=== PATIENT | female | born 2000 | race Caucasian/White ===

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

== ENCOUNTER 2021-02-20 14:40 | Observation (INO) ==
[2021-02-20] MEDS ORDERED: LIDOCAINE 5% 1 PATCH TD STA (16:04)
[2021-02-20] MEDS ORDERED: CYCLOBENZAPRINE HCL 10 MG TAB PO STA (16:04)
[2021-02-20] MEDS ORDERED: dexAMETHasone**PF** 10 MG/ML VIAL IM ONE (16:04)
[2021-02-20] MEDS ORDERED: ACETAMINOPHEN 500 MG TAB PO STA (16:04)
--- NOTE | 2021-02-20 16:09 | Emergency Department Note ---
Impression & Plan Acute low back pain, Strain of lumbar region ED Provider Note CHIEF COMPLAINT: Low back pain HISTORY OF PRESENT ILLNESS: This 20-year-old female patient with significant past medical history of herniated disc in the lumbar region presents to the emergency department via ambulance complaining of pain in the low back which began 1 to 2 hours prior to arrival. The patient states she was working when she bent over to pick something up at the store and her back seized up, causing her to have to lower herself to the ground. The pain was sudden in onset, is now constant and worse with movement. The patient notes the pain as aching and spasming and a 8/10. The patient has taken no medication for relief of the pain. The patient denies any loss of control of their bowel or bladder func tions. There has been no leg numbness or weakness, and no change in sensation. No nausea or vomiting or abdominal pain. No chest pain or shortness of breath. No dysuria or increased urinary frequency. No saddle anesthesia. The patient is able to move her legs without difficulty and was able to bear weight to stand and pivot from the wheelchair to the bed, but is having difficulty weightbearing to ambulate. REVIEW OF SYSTEMS: A 10 system review of systems was performed with positives and pertinent negatives listed in the history of present illness. All other systems were reviewed and are negative. ALLERGIES: None PHYSICAL EXAM: VITALS: Vitals are noted on the nurse's note and reviewed by myself. Vital signs stable. GENERAL: This is a 20-year-old white female, in no acute distress, nondiaphoretic, well-developed well-nourished. SKIN: The skin was without rashes, erythema, edema, or bruising. Capillary refill less than 2 seconds. NECK: Supple without nuchal rigidity. No cervical spine tenderness. No paraspinous muscle tenderness. HEART: Regular rate and rhythm without murmurs gallops or rubs. LUNGS: Clear to auscultation bilaterally without wheezes, rales or rhonchi. ABDOMEN: Positive bowel sounds x 4. Normal tympanic percussion. Soft, nontender, without masses or organomegaly. MUSCULOSKELETAL: No muscle atrophy, erythema, or edema noted of the back. There is no tenderness over the lumbar spinous processes. There is tenderness over the paraspinous muscles on the right. There is no tenderness over the thoracic spine or paraspinous muscles. There are muscle spasms present. The patient is slow to move around with maximum tenderness with sitting from a lying position. Positive bilateral straight leg raise test. NEURO: Patient was alert and oriented to person place and time. Normal sensation to light and sharp touch. Deep tendon reflexes 2+ in the lower extremities. Dorsalis pedis pulse 2+ bilaterally. Strength 5/5 and equal in the bilateral lower extremities. EMERGENCY DEPARTMENT COURSE: The patient was seen and evaluated as above. No neurovascular compromise. There is no weakness. Examination is relatively benign, but the patient is complaining of muscle spasms and inability to change positions. She was initially medicated with p.o. acetaminophen, lidocaine patch, Decadron. The patient complained of ongoing pain and while she was able to maneuver to the bedside commode, stated she was having difficulty getting back into the bed and repositioned. The patient was medicated with 8 mg of IM morphine. X-ray imaging performed reviewed by myself and radiologist as noted. I discussed findings with the patient at bedside. She is laying on her side and will not straighten up onto her back. The patient was provided with a walker and ambulatory trial attempted, though she was unable to tolerate this. I offered the patient admission/observation versus discharge, and the patient does not feel that she will be able to ambulate at home and would like to be admitted for pain control. IV access obtained, labs drawn. The patient was medicated with IV Toradol. I spoke with case management regarding the admission. I then spoke with Dr. Mario, [facility] hospitalist garage construction equipment mechanic. He did request that I place an order for an MRI to further evaluate the back pain. This was placed. Please see hospitalist dictation regarding ongoing management and care of this patient and for results of MRI. Differential diagnosis include musculoskeletal, disc herniation, fracture, metastatic disease, cord compression, discitis, sciatica, cauda equina, infection, aortic disease, renal colic, gastrointestinal, as well as other pathologies. I attest that I have personally reviewed the patient's current medication list. Patient was found to have normal blood pressure on screening and does not require follow-up. The chart was completed utilizing [employer] voice recognition software. Grammatical errors, random word insertions, pronoun errors, and incomplete sentences are an occasional consequence of this system due to software limitations, ambient noise, and hardware issues. Any formal questions or concerns about the content, text, or information contained within the body of this dictation should be directly addressed to the provider for clarification. Past Med/Surg History Medical History (Updated 02/20/21 @ 23:34 by Shirley Gauthier PA-C) ADHD Anxiety Asthma Depression Environmental and seasonal allergies Ovarian cyst Family History Grandmother (Maternal) Breast cancer Other No significant family history Denies family history of Ovarian cancer Colorectal cancer Social History Smoking Status: Never smoker Hx Alcohol Use: No Hx Substance Use: No Preferred Language: Latvian Communication Ability: Effective Surgical Sales Representative Required: No Beliefs That Will Affect Care: None Current Living Situation: Family current occupational status: student Other Information That Helps Us Care for You: No Feels Safe at Home: Yes Safety Concerns: Feels Safe At This Time Assistive Devices: None Assistive Devices Comment: Brace she uses at times Allergies Allergies Allergy/AdvReac Type Severity Reaction Status Date / Time No Known Drug Allergies Allergy Verified 06/14/20 15:39 CATS, HORSES Allergy Intermediate ITCHY, Uncoded 06/14/20 15:39 WATERY, EYES. SNEEZE, COUGH SEASONAL Allergy Intermediate ITCHY Uncoded 06/14/20 15:39 EYES,SNEEZE, COUGH Home Meds Home Medications Medication Instructions Recorded Confirmed cetirizine 10 mg tablet (Zyrtec) 10 mg PO DAILY 10/13/18 06/14/20 lisdexamfetamine 20 mg capsule 20 mg PO DAILY 10/13/18 06/14/20 (Vyvanse) budesonide-formoterol [Symbicort] 2 puff INHALATION BID 02/17/20 06/14/20 fluoxetine 40 mg capsule 40 mg PO DAILY 02/17/20 06/14/20 levonorgestrel 20 mcg/24 hours (6 INTRAUTERINE 02/17/20 06/14/20 yrs) 52 mg intrauterine device (Mirena) albuterol sulfate 90 mcg/actuation 2 puff INHALATION Q4H PRN 02/20/21 02/20/21 aerosol inhaler (Proventil HFA) meclizine 25 mg tablet 25 mg PO TID PRN 02/20/21 02/20/21 Results & Data (ED) Vital Signs Vital Signs - 24 hr 02/20/21 15:48 02/20/21 18:00 Temperature 36.7 C Temperature Source Oral Pulse Rate 82 Pulse Rate [Right Finger] 96 H Respiratory Rate 20 16 Respiratory Effort / Characteristics Non-Labored Spontaneous Respiratory Depth Normal Respiratory Pattern Regular Blood Pressure 119/88 Blood Pressure [Left Arm] 123/76 Blood Pressure Mean 98 Blood Pressure Mean [Left Arm] 91 Blood Pressure Position Sitting Blood Pressure Position [Left Arm] Lying Pulse Oximetry 98 96 Oxygen Delivery Method Room Air Room Air Sepsis Recent Fever Within 48 Hours No Sepsis New/Unexplained Change in Mental Status N/A Sepsis Action Taken by Nursing No Action Required Laboratory Data Result diagrams: 02/20/21 18:25 02/20/21 18:25 Lab Results 02/20/21 02/20/21 02/20/21 Range/Units 18:25 18:25 18:35 WBC 11.14 H (4.8-10.8) K/uL RBC 5.01 (4.2-5.4) M/uL Hgb 15.4 (12.0-16.0) g/dL Hct 44.5 (37-47) % MCV 88.8 (80-100) fL MCH 30.7 (25-34) pg MCHC 34.6 (32-36) g/dL RDW Std Deviation 41.6 (36.4-46.3) fL RDW Coeff of Keaton 13.0 (11.5-14.5) % Plt Count 273 (130-400) K/uL MPV 11.7 H (7.4-10.4) fL Immature Gran % (Auto) 0.2 % Neut % (Auto) 87.5 % Lymph % (Auto) 10.1 % [place] % (Auto) 1.6 % Eos % (Auto) 0.4 % Baso % (Auto) 0.2 % Neut # (Auto) 9.76 H (1.4-6.5) K/uL Lymph # (Auto) 1.12 L (1.2-3.4) K/uL [place] # (Auto) 0.18 (0.11-0.59) K/uL Eos # (Auto) 0.04 (0-0.5) K/uL Baso # (Auto) 0.02 (0-0.2) K/uL Immature Gran # (Auto) 0.02 (0.00-0.02) K/uL Sodium 136 (136-145) mmol/L Potassium 3.8 (3.5-5.1) mmol/L Chloride 106 (98-107) mmol/L Carbon Dioxide 25 (21-32) mmol/L Anion Gap 5.0 (3-11) BUN 10 (7-18) mg/dl Creatinine 0.81 (0.6-1.2) mg/dl Est Cr Clr Drug Dosing 124.8 ml/min Est GFR ( Amer) 121.2 ml/min Est GFR (Non-Af Amer) 104.6 ml/min BUN/Creatinine Ratio 12.9 (10-20) Glucose 98 (70-99) mg/dl Calcium 9.5 (8.5-10.1) mg/dl Total Bilirubin 0.5 (0.2-1) mg/dl AST 11 L (15-37) U/L ALT 18 (12-78) U/L Alkaline Phosphatase 85 (45-117) U/L Total Protein 8.1 (6.4-8.2) gm/dl Albumin 4.4 (3.4-5.0) gm/dl Globulin 3.7 (2.5-4.0) gm/dl Albumin/Globulin Ratio 1.2 (0.9-2) COVID-19 Eval Order Covid19 at [facility] SARS-CoV-2 (PCR) (Negative) 02/20/21 Range/Units 18:35 WBC (4.8-10.8) K/uL RBC (4.2-5.4) M/uL Hgb (12.0-16.0) g/dL Hct (37-47) % MCV (80-100) fL MCH (25-34) pg MCHC (32-36) g/dL RDW Std Deviation (36.4-46.3) fL RDW Coeff of Keaton (11.5-14.5) % Plt Count (130-400) K/uL MPV (7.4-10.4) fL Immature Gran % (Auto) % Neut % (Auto) % Lymph % (Auto) % [place] % (Auto) % Eos % (Auto) % Baso % (Auto) % Neut # (Auto) (1.4-6.5) K/uL Lymph # (Auto) (1.2-3.4) K/uL [place] # (Auto) (0.11-0.59) K/uL Eos # (Auto) (0-0.5) K/uL Baso # (Auto) (0-0.2) K/uL Immature Gran # (Auto) (0.00-0.02) K/uL Sodium (136-145) mmol/L Potassium (3.5-5.1) mmol/L Chloride (98-107) mmol/L Carbon Dioxide (21-32) mmol/L Anion Gap (3-11) BUN (7-18) mg/dl Creatinine (0.6-1.2) mg/dl Est Cr Clr Drug Dosing ml/min Est GFR ( Amer) ml/min Est GFR (Non-Af Amer) ml/min BUN/Creatinine Ratio (10-20) Glucose (70-99) mg/dl Calcium (8.5-10.1) mg/dl Total Bilirubin (0.2-1) mg/dl AST (15-37) U/L ALT (12-78) U/L Alkaline Phosphatase (45-117) U/L Total Protein (6.4-8.2) gm/dl Albumin (3.4-5.0) gm/dl Globulin (2.5-4.0) gm/dl Albumin/Globulin Ratio (0.9-2) COVID-19 Eval Order SARS-CoV-2 (PCR) NEGATIVE (Negative) Administered Medications Acetaminophen (Acetaminophen 325 Mg Tab) 650 mg PO Q6H BO Stop: 03/22/21 21:59 Last Admin: 02/20/21 21:54 Dose: 650 mg Documented by: [id number] Cyclobenzaprine HCl (Cyclobenzaprine Hcl 10 Mg Tab) 10 mg PO BID BO Stop: 03/22/21 21:09 Last Admin: 02/20/21 21:54 Dose: 10 mg Documented by: [id number] Miscellaneous (Remove Lidoderm Patch) 1 ea N/A DAILY@2100 BO Stop: 03/22/21 21:09 Last Admin: 02/20/21 21:25 Dose: 1 ea Documented by: [id number] Discontinued Medications Acetaminophen (Acetaminophen 500 Mg Tab) 1,000 mg PO NOW STA Stop: 02/20/21 16:05 Last Admin: 02/20/21 16:11 Dose: 1,000 mg Documented by: [id number] Cyclobenzaprine HCl (Cyclobenzaprine Hcl 10 Mg Tab) 10 mg PO NOW STA Stop: 02/20/21 16:05 Last Admin: 02/20/21 16:11 Dose: 10 mg Documented by: [id number] Dexamethasone Sodium Phosphate (DexamethasonePf 10 Mg/Ml Vial) 10 mg IM NOW ONE Stop: 02/20/21 16:05 Last Admin: 02/20/21 16:11 Dose: 10 mg Documented by: [id number] Ketorolac Tromethamine (Ketorolac 30 Mg/Ml Vial) 30 mg IV NOW STA Stop: 02/20/21 18:08 Last Admin: 02/20/21 18:33 Dose: 30 mg Documented by: [id number] Lidocaine (Lidocaine 5% 1 Patch) 1 patch TD NOW STA Stop: 02/20/21 16:05 Last Admin: 02/20/21 16:11 Dose: 1 patch Documented by: [id number] Miscellaneous (Remove Lidoderm Patch) 1 ea N/A DAILY@2100 BO Stop: 03/22/21 20:59 Last Admin: 02/20/21 21:00 Dose: 1 ea Documented by: [id number] Morphine Sulfate (Morphine Sulfate 10 Mg/Ml Carp/Vial) 8 mg IM NOW STA Stop: 02/20/21 16:27 Last Admin: 02/20/21 16:30 Dose: 8 mg Documented by: [id number] Imaging Data Radiologist's Impression: Lumbar Spine X-Ray 02/20/21 16:04 LUMBAR SPINE 3 VIEWS CLINICAL HISTORY: Low back pain. FINDINGS: 3 views of the lumbar spine are correlated with abdominal CT dated 04/15/2013. The skeletal structures are well mineralized. There is no radiographic evidence of fracture or malalignment. Vertebral body height and a lignment are maintained. The transverse and spinous processes are intact. Tiny anterior osteophytes are noted in the lower lumbar region. There is mild disc space narrowing at L4-L5 with small posterior disc osteophyte complexes at these levels. The remaining disc spaces are maintained. The visualized bony pelvis appears intact. There is a nonobstructed abdominal bowel gas pattern. Moderate constipation is noted. An intrauterine device is in the pelvis. IMPRESSION: No acute bony abnormality is seen involving the lumbar spine. ACT 112: Negative or not required by law. Electronically signed by: Agustin Duckworth M.D. 02/20/2021 5:34 PM Discharge Plan Visit Data Chief Complaint: Back Injury/Pain ED Provider: Agustin Carrasquillo ED Midlevel Provider: Shirley Gauthier Discharge Problem: Acute low back pain, Strain of lumbar region Patient Disposition: Admitted As Inpatient Discharge Instructions Interventions: ED Discharge Assessment Last Done: 02/20/21 20:29
[2021-02-20] MEDS ORDERED: MoRPHine SULFATE 10 MG/ML CARP/VIAL IM STA (16:26)
--- NOTE | 2021-02-20 17:36 | XRay Report ---
LUMBAR SPINE 3 VIEWS CLINICAL HISTORY: Low back pain. FINDINGS: 3 views of the lumbar spine are correlated with abdominal CT dated 04/15/2013. The skeleta l structures are well mineralized. There is no radiographic evidence of fracture or malalignment. Ivonne tebral body height and alignment are maintained. The transverse and spinous processes are intact. Tin y anterior osteophytes are noted in the lower lumbar region. There is mild disc space narrowing at L4 -L5 with small posterior disc osteophyte complexes at these levels. The remaining disc spaces are aline ntained. The visualized bony pelvis appears intact. There is a nonobstructed abdominal bowel gas lauren arturo. Moderate constipation is noted. An intrauterine device is in the pelvis. IMPRESSION: No acute bony abnormality is seen involving the lumbar spine. ACT 112: Negative or not required by law. Electronically signed by: Agustin Duckworth M.D. 02/20/2021 5:34 PM
[2021-02-20] MEDS ORDERED: KETOROLAC 30 MG/ML VIAL IV STA (18:07)
[2021-02-20 18:38] LABS: Basophils # (auto) 0.02 K/uL (0-0.2); Basophils % (auto) 0.2 %; Eosinophils # (auto) 0.04 K/uL (0-0.5); Eosinophils % (auto) 0.4 %; Hematocrit (blood only) 44.5 % (37-47); Hemoglobin 15.4 g/dL (12.0-16.0); Immature Granulocytes # (auto) 0.02 K/uL (0.00-0.02); Immature Granulocytes % (auto) 0.2 %; Lymphocytes # (auto) 1.12 K/uL (1.2-3.4); Lymphocytes % (auto) 10.1 %; Mean Corpuscular Hemoglobin 30.7 pg (25-34); Mean Corpuscular Hgb Conc 34.6 g/dL (32-36); Mean Corpuscular Volume 88.8 fL (80-100); Mean Platelet Volume 11.7 fL (7.4-10.4); Monocytes # (auto) 0.18 K/uL (0.11-0.59); Monocytes % (auto) 1.6 %; Neutrophils # (auto) 9.76 K/uL (1.4-6.5); Neutrophils % (auto) 87.5 %; Platelet Count 273 K/uL (130-400); RDW Standard Deviation 41.6 fL (36.4-46.3); Red Blood Count 5.01 M/uL (4.2-5.4); White Blood Count 11.14 K/uL (4.8-10.8)
[2021-02-20 19:00] LABS: Albumin Level 4.4 gm/dl (3.4-5.0); BUN Creatinine Ratio 12.9 (10-20); Calcium 9.5 mg/dl (8.5-10.1); Creatinine Clr Calc Pharmacy 124.8 ml/min; Est GFR (African American) 121.2 ml/min; Est GFR (Non-African American) 104.6 ml/min; Potassium 3.8 mmol/L (3.5-5.1)
[2021-02-20 19:03] LABS: Albumin Globulin Ratio 1.2 (0.9-2); Bilirubin,Total 0.5 mg/dl (0.2-1); Globulin 3.7 gm/dl (2.5-4.0); Total Protein 8.1 gm/dl (6.4-8.2)
--- NOTE | 2021-02-20 19:13 | History & Physical Report ---
Date of Service February 20, 2021 Assessment & Plan (1) Acute low back pain: (2) Lumbar back pain with radiculopathy affecting lower extremity: Plan: Acute onset low back pain in a patient with known lumbar disc herniation with radiculopathy. Patient not able to work due to pain. We will try to control pain. Tylenol scheduled, IV ketorolac, Flexeril and lidocaine patch ordered We will get MRI of the lumbar spine to better assess Orthopedic consults We will get PT OT tomorrow once evaluated by Ortho. (3) Asthma: Plan: Stable Continue home inhalers (4) Depression: Plan: Reports depression is stable at this point Has not taken Prozac for some time now. Resumed (5) ADHD: Plan: Reports that she was only using Vyvanse during school and just graduated and has not taken it for some weeks. Hold medication (6) DVT prophylaxis: Plan: SCD History of Present Illness Chief Complaint: Acute onset low back pain Primary Care Provider: Shabnam Cox, DO 20-year-old woman with history of asthma, chronic bilateral low back pain due to lumbar disc herniation with radiculopathy, depression, ADHD who presents with acute onset low back pain that started around 1:30 PM today. Patient reported that she started having low back pain 2 years ago. History of figure skating. Was seen by Dr. Henry, orthopedic surgeon in November 2019. Was being treated for L4-5 lumbar disc herniation with radiculopathy with conservative management including physical therapy, steroid, NSAIDs activity modification. She reports that she has been having just mild flares since until today. Reported no pain earlier this morning until onset of symptoms around 1:30 PM today when patient bent down to put something on the shelf reported pain was acute in onset, severe, sharp associated with tightening radiating to the legs and patient had to lower herself to the ground and could not walk since due to pain. Patient denies any numbness, paresthesias, urinary or bowel incontinence. Patient reports that the small episode she has had in the past usually associat ed with low back pain, "back seizing', spasms and pain radiating into the legs especially the right leg. Reported the last episode was about a month ago and lasted some minutes. Usually gets relieved with code or warm compresses with her back brace and other conservative management. However, reports that he has never had one that lasted this long about this bad that she cannot move. Mother who was at bedside reported family history of back problems in herself and in parents as well Patient denies cigarette smoking or alcohol use. Reports use of edible marijuana but last use has been a while. Allergies Allergy/AdvReac Type Severity Reaction Status Date / Time No Known Drug Allergies Allergy Verified 06/14/20 15:39 CATS, HORSES Allergy Intermediate ITCHY, Uncoded 06/14/20 15:39 WATERY, EYES. SNEEZE, COUGH SEASONAL Allergy Intermediate ITCHY Uncoded 06/14/20 15:39 EYES,SNEEZE, COUGH Home Medications Medication Instructions Recorded Confirmed Type cetirizine 10 mg tablet (Zyrtec) 10 mg PO DAILY 10/13/18 06/14/20 History lisdexamfetamine 20 mg capsule 20 mg PO DAILY 10/13/18 06/14/20 History (Vyvanse) budesonide-formoterol [Symbicort] 2 puff INHALATION BID 02/17/20 06/14/20 History fluoxetine 40 mg capsule 40 mg PO DAILY 02/17/20 06/14/20 History levonorgestrel 20 mcg/24 hours (6 INTRAUTERINE 02/17/20 06/14/20 History yrs) 52 mg intrauterine device (Mirena) albuterol sulfate 90 mcg/actuation 2 puff INHALATION Q4H PRN 02/20/21 02/20/21 History aerosol inhaler (Proventil HFA) meclizine 25 mg tablet 25 mg PO TID PRN 02/20/21 02/20/21 History Past Med/Surg History Medical History (Updated 02/20/21 @ 19:26 by Nena Mario MD) ADHD Anxiety Asthma Depression Environmental and seasonal allergies Ovarian cyst Family History Grandmother (Maternal) Breast cancer Other No significant family history Denies family history of Ovarian cancer Colorectal cancer Social History Smoking Status: Never smoker Current Living Situation: Family current occupational status: student Feels Safe at Home: Yes Review of Systems Constitutional: no fever, no chills, no fatigue and no malaise Eyes: no problem reported Ear, Nose, Mouth, Throat: no problem reported Respiratory: no cough, no chest congestion and no dyspnea Cardiovascular: no chest pain, no dyspnea, no orthopnea and no lightheadedness Gastrointestinal: no abdominal pain, no nausea, no vomiting and no change in bowel habits Genitourinary: no dysuria, no difficulty urinating, no urinary hesitancy and no urinary incontinence Musculoskeletal: + back pain, + radicular pain and + stiffness Neurologic: no loss of sensation, no tingling, no paresthesia, no headache(s) and no confusion Psychiatric: History of depression but controlled Physical Exam Constitutional: + well hydrated and + obese; no acute distress Eyes: PERRL, conjunctivae normal, anicteric sclerae ENMT: external ear and nose normal, oropharynx normal Respiratory: normal respiratory effort, lungs clear to auscultation Cardiovascular: RRR, no murmur, no edema Gastrointestinal (Abdomen): normal bowel sounds, soft, nontender, no hepatosplenomegaly Musculoskeletal: Tenderness over palpation of central lumbosacral region Neurologic: PERRL, EOMI, accommodation nl, no face palsy, no dysarthria Power is normal in all upper and lower extremities Sensation is intact Positive straight leg raise test Psychiatric: A+Ox3, euthymic affect Results & Data Results & Data ([facility]) Vital Signs (Past 12 Hours) Vital Signs Temp Pulse Pulse Resp BP BP Pulse Ox 02/20/21 18:59 95 H 16 122/61 99 02/20/21 18:00 96 H 16 123/76 96 02/20/21 15:48 36.7 C 82 20 119/88 98 Laboratory Results Abnormal lab results 02/20/21 02/20/21 Range/Units 18:25 18:25 WBC 11.14 H (4.8-10.8) K/uL MPV 11.7 H (7.4-10.4) fL Neut # (Auto) 9.76 H (1.4-6.5) K/uL Lymph # (Auto) 1.12 L (1.2-3.4) K/uL AST 11 L (15-37) U/L Diagnostic Findings Lumbar spine x-ray 3 views of the lumbar spine are correlated with abdominal CT dated 04/15/2013. The skeletal structures are well mineralized. There is no radiographic evidence of fracture or malalignment. Vertebral body height and alignment are maintained. The transverse and spinous processes are intact. Tiny anterior osteophytes are noted in the lower lumbar region. There is mild disc space narrowing at L4-L5 with small posterior disc osteophyte complexes at these levels. The remaining disc spaces are maintained. The visualized bony pelvis appears intact. There is a nonobstructed abdominal bowel gas pattern. Moderate constipation is noted. An intrauterine device is in the pelvis. IMPRESSION: No acute bony abnormality is seen involving the lumbar spine. Code Status & VTE Plan VTE Prophylaxis Plan VTE Prophylaxis will be ordered: Yes
--- NOTE | 2021-02-20 19:51 | XRay Report ---
BONY ORBITS 3 VIEWS CLINICAL HISTORY: MRI clearance. FINDINGS: 3 views of the bony orbits are obtained. No prior studies are available for comparison at t he time of dictation. There is no radiodense/metallic foreign body seen in the region of the bony orb its. The bony orbits are intact as imaged. The visualized paranasal sinuses and the mastoid air cells appear clear. The imaged calvarium appears intact. IMPRESSION: There is no radiodense/metallic foreign body seen in the region of the bony orbits. ACT 112: Negative or not required by law. Electronically signed by: Agustin Duckworth M.D. 02/20/2021 7:49 PM
[2021-02-20] MEDS ORDERED: KETOROLAC 30 MG/ML VIAL IV PRN (21:10)
[2021-02-20] MEDS ORDERED: ALBUTEROL HFA 8 GM INHALER INH PRN (21:10)
[2021-02-20] MEDS: ACETAMINOPHEN 325 MG TAB PO SCH (21:54)
[2021-02-20] MEDS: CYCLOBENZAPRINE HCL 10 MG TAB PO SCH (21:54)
[2021-02-21] MEDS: ACETAMINOPHEN 325 MG TAB PO SCH ×2 (03:51→09:34)
[2021-02-21 06:53] LABS: Hematocrit (blood only) 42.9 % (37-47); Hemoglobin 14.4 g/dL (12.0-16.0); Mean Corpuscular Hemoglobin 29.3 pg (25-34); Mean Corpuscular Hgb Conc 33.6 g/dL (32-36); Mean Corpuscular Volume 87.4 fL (80-100); Mean Platelet Volume 11.7 fL (7.4-10.4); Platelet Count 287 K/uL (130-400); RDW Coefficient of Variation 13.1 % (11.5-14.5); RDW Standard Deviation 41.7 fL (36.4-46.3); Red Blood Count 4.91 M/uL (4.2-5.4); White Blood Count 12.17 K/uL (4.8-10.8)
[2021-02-21 07:26] LABS: BUN Creatinine Ratio 17.3 (10-20); Calcium 9.7 mg/dl (8.5-10.1); Creatinine Clr Calc Pharmacy 132.3 ml/min; Est GFR (African American) 130.9 ml/min; Est GFR (Non-African American) 112.9 ml/min; Potassium 4.2 mmol/L (3.5-5.1)
--- NOTE | 2021-02-21 07:53 | Magnetic Resonance Report ---
MR lumbar spine wo con: CLINICAL HISTORY: 20 years-old Female with low back pain. Acute severe low back pain with radicular symptoms of the right greater than left lower extremities. COMPARISON: Lumbar spine radiographs 02/20/2021. TECHNIQUE: Multiplanar, multi sequence MRI of the lumbar spine was performed without intravenous cont rast. FINDINGS: Travel Journalist localizer images demonstrate no gross extraspinal abnormality. Conus medullaris terminates at T 12-L1. Signal within the imaged thoracic spinal cord is unremarkable. Cauda equina is within normal l imits. No acute fracture, subluxation, bone marrow or soft tissue edema. No endplate erosions. Parasp inal tissues are within normal limits. T12-L1: No central canal or neural foraminal stenosis. L1-L2: No central canal or neural foraminal stenosis. L2-L3: No central canal or neural foraminal stenosis. L3-L4: Mild intervertebral disc space narrowing with disc desiccation. Posterior annular disc bulge with central annular fissure flattens the ventral thecal sac resulting in mild central canal stenosis , AP dimension of the thecal sac measuring 9 mm. The bilateral neural foramen are patent. L4-L5: Mild intervertebral disc space narrowing with disc desiccation. Spondylitic spurring with pos terior disc bulge. There is a large central disc protrusion measuring 1.6 x 0.5 cm. Mild associated l igamentum flavum thickening. AP dimension of the thecal sac measures 6 mm. There is moderate to sever e central canal stenosis with at least moderate narrowing of the lateral recesses. Mild inferior neur al foraminal narrowing bilaterally. L5-S1: Mild intervertebral disc space narrowing with disc desiccation. Spondylitic spurring with sma ll posterior annular disc bulge and right lateral recess annular fissure. The central canal is patent . Mild bilateral neural foraminal narrowing. IMPRESSION: 1. 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 2. Large central disc protrusion at L4-L5 results in moderate to severe central canal stenosis. 3. Mild central canal stenosis at L3-L4. 4. Mild neural foraminal narrowing at L4-L5 and L5-S1. ACT 112: Negative or not required by law. The above report was generated using voice recognition software. It may contain grammatical, syntax o r spelling errors. Dictated: 02/21/2021 7:33 AM Transcribed: 02/21/2021 7:46 AM Rachelle [id number] [facility] Electronically signed by: Blas Heaton M.D. 02/21/2021 7:51 AM
[2021-02-21] MEDS: CYCLOBENZAPRINE HCL 10 MG TAB PO SCH (08:07)
[2021-02-21] MEDS ORDERED: LIDOCAINE 5% 1 PATCH TD SCH (09:00)
[2021-02-21] MEDS ORDERED: FLUoxetine HCL 20 MG CAP PO SCH (09:00)
[2021-02-21] MEDS ORDERED: CETIRIZINE HCL 10 MG TABLET PO SCH (09:00)
[2021-02-21] MEDS ORDERED: FLUTICASONE/VILANTEROL 100/25MCG 14 PUFFS/INHALER INH SCH (09:00)
--- NOTE | 2021-02-21 09:56 | Orthopedic Consultation ---
Date of Consultation February 21, 2021 Assessment & Plan (1) Lumbar back pain with radiculopathy affecting lower extremity: I had a long session with this patient regarding her clinical presentation and MRI findings. She does have a very large central disc herniation L4-L5 undoubtedly contributing to her back and leg symptoms. We discussed treatment options. I would recommend a consultation with pain management. She has seen a pain management physician at [facility] in the past. I recommend she follow-up with them. If things decline or she gets worse you will notify us would see her in the office. Otherwise I will see her as needed. Thank you History of Present Illness Reason for Consultation: Back and leg pain Attending Physician: Nena Mario MD History of Present Illness Is a very pleasant 20-year-old female that presents with severe back and bilateral leg pain. She does have a history of a disc condition diagnosed in [address]. She has been undergoing physical therapy and daily exercise routine which tends to keep this relatively controlled. Unfortunately yesterday she bent over and had sudden onset of back and bilateral leg pain right described as worse than left. Denies any loss of bowel bladder control. This morning she complains mostly of back pain leg symptoms seem improved. She denies any radicular component as of right now. Allergies Allergy/AdvReac Type Severity Reaction Status Date / Time No Known Drug Allergies Allergy Verified 06/14/20 15:39 CATS, HORSES Allergy Intermediate ITCHY, Uncoded 06/14/20 15:39 WATERY, EYES. SNEEZE, COUGH SEASONAL Allergy Intermediate ITCHY Uncoded 06/14/20 15:39 EYES,SNEEZE, COUGH Home Medications Medication Instructions Recorded Confirmed Type cetirizine 10 mg tablet (Zyrtec) 10 mg PO DAILY 10/13/18 06/14/20 History lisdexamfetamine 20 mg capsule 20 mg PO DAILY 10/13/18 06/14/20 History (Vyvanse) budesonide-formoterol [Symbicort] 2 puff INHALATION BID 02/17/20 06/14/20 History fluoxetine 40 mg capsule 40 mg PO DAILY 02/17/20 06/14/20 History levonorgestrel 20 mcg/24 hours (6 INTRAUTERINE 02/17/20 06/14/20 History yrs) 52 mg intrauterine device (Mirena) albuterol sulfate 90 mcg/actuation 2 puff INHALATION Q4H PRN 02/20/21 02/20/21 History aerosol inhaler (Proventil HFA) meclizine 25 mg tablet 25 mg PO TID PRN 02/20/21 02/20/21 History Patient History Medical History (Updated 02/20/21 @ 23:34 by Shirley Gauthier PA-C) ADHD Anxiety Asthma Depression Environmental and seasonal allergies Ovarian cyst Family History Grandmother (Maternal) Breast cancer Other No significant family history Denies family history of Ovarian cancer Colorectal cancer Social History Smoking Status: Never smoker Hx Alcohol Use: No Hx Substance Use: No Preferred Language: Georgian Communication Ability: Effective Aircraft Life Support Fitter Required: No Beliefs That Will Affect Care: None Current Living Situation: Family current occupational status: student Other Information That Helps Us Care for You: No Feels Safe at Home: Yes Safety Concerns: Feels Safe At This Time Assistive Devices: None Assistive Devices Comment: Brace she uses at times Physical Exam Physical Exam: On exam she does Exhibit +5 of 5 plantar flexion dorsiflexion extensor pollicis longus quadricep. Sensory symmetric and intact. She does have significant pain with straight leg raise bilaterally but mostly in the back and upper buttock region. Results & Data ([facility]) Vital Signs (Past 12 Hours) Vital Signs Temp Pulse Resp BP Pulse Ox 02/21/21 08:04 36.6 C 85 18 115/73 97 02/20/21 22:19 36.9 C 119 H 20 131/75 93
--- NOTE | 2021-02-21 14:19 | Discharge Summary ---
Date of Service February 21, 2021 Admission HPI Per Admitting Provider 20-year-old woman with history of asthma, chronic bilateral low back pain due to lumbar disc herniation with radiculopathy, depression, ADHD who presents with acute onset low back pain that started around 1:30 PM today. Patient reported that she started having low back pain 2 years ago. History of figure skating. Was seen by Dr. Henry, orthopedic surgeon in November 2019. Was being treated for L4-5 lumbar disc herniation with radiculopathy with conservative management including physical therapy, steroid, NSAIDs activity modification. She reports that she has been having just mild flares since until today. Reported no pain earlier this morning until onset of symptoms around 1:30 PM today when patient bent down to put something on the shelf reported pain was acute in onset, severe, sharp associated with tightening radiating to the legs and patient had to lower herself to the ground and could not walk since due to pain. Patient denies any numbness, paresthesias, urinary or bowel incontinence. Patient reports that the small episode she has had in the past usually associated with low back pain, "back seizing', spasms and pain radiating into the legs especially the right leg. Reported the last episode was about a month ago and lasted some minutes. Usually gets relieved with code or warm compresses with her back brace and other conservative management. However, reports that he has never had one that lasted this long about this bad that she cannot move. Mother who was at bedside reported family history of back problems in herself and in parents as well Patient denies cigarette smoking or alcohol use. Reports use of edible marijuana but last use has been a while. Admission Exam Per Admitting Provider Constitutional: + well hydrated and + obese; no acute distress Eyes: PERRL, conjunctivae normal, anicteric sclerae ENMT: external ear and nose normal, oropharynx normal Respiratory: normal respiratory effort, lungs clear to auscultation Cardiovascular: RRR, no murmur, no edema Gastrointestinal (Abdomen): normal bowel sounds, soft, nontender, no hepatosplenomegaly Musculoskeletal: Tenderness over palpation of central lumbosacral region Neurologic: PERRL, EOMI, accommodation nl, no face palsy, no dysarthria Power is normal in all upper and lower extremities Sensation is intact Positive straight leg raise test Psychiatric: A+Ox3, euthymic affect Principal Diagnosis Acute low back pain Lumbar back pain with radiculopathy affecting lower extremity Discharge Exam Constitutional + well hydrated and + obese; no acute distress Eyes PERRL, conjunctivae normal, anicteric sclerae ENMT external ear and nose normal, oropharynx normal Respiratory normal respiratory effort, lungs clear to auscultation Cardiovascular RRR, no murmur, no edema Gastrointestinal (Abdomen) normal bowel sounds, soft, nontender, no hepatosplenomegaly Musculoskeletal Power is 5/5 in all extremities Mild tenderness over lower back Neurologic PERRL, EOMI, accommodation nl, no face palsy, no dysarthria Power is normal in extremities Sensation in tact +straight leg test Psychiatric A+Ox3, euthymic affect Discharge Data Allergies Allergy/AdvReac Type Severity Reaction Status Date / Time No Known Drug Allergies Allergy Verified 06/14/20 15:39 CATS, HORSES Allergy Intermediate ITCHY, Uncoded 06/14/20 15:39 WATERY, EYES. SNEEZE, COUGH SEASONAL Allergy Intermediate ITCHY Uncoded 06/14/20 15:39 EYES,SNEEZE, COUGH Consultations 02/20/21 18:22 ED Decision to Admit Stat 02/20/21 19:06 Consult Orthopedic Surgery Routine Ordered Studies 02/20/21 18:22 MR lumbar spine wo con Stat Activity Therapy Teacher localizer images demonstrate no gross extraspinal abnormality. Conus medullaris terminates at T12-L1. Signal within the imaged thoracic spinal cord is unremarkable. Cauda equina is within normal limits. No acute fracture, subluxation, bone marrow or soft tissue edema. No endplate erosions. Paraspinal tissues are within normal limits. T12-L1: No central canal or neural foraminal stenosis. L1-L2: No central canal or neural foraminal stenosis. L2-L3: No central canal or neural foraminal stenosis. L3-L4: Mild intervertebral disc space narrowing with disc desiccation. Posterior annular disc bulge with central annular fissure flattens the ventral thecal sac resulting in mild central canal stenosis, AP dimension of the thecal sac measuring 9 mm. The bilateral neural foramen are patent. L4-L5: Mild intervertebral disc space narrowing with disc desiccation. Spondylitic spurring with posterior disc bulge. There is a large central disc protrusion measuring 1.6 x 0.5 cm. Mild associated ligamentum flavum thickening. AP dimension of the thecal sac measures 6 mm. There is moderate to severe ce ntral canal stenosis with at least moderate narrowing of the lateral recesses. Mild inferior neural foraminal narrowing bilaterally. L5-S1: Mild intervertebral disc space narrowing with disc desiccation. Spondylitic spurring with small posterior annular disc bulge and right lateral recess annular fissure. The central canal is patent. Mild bilateral neural foraminal narrowing. IMPRESSION: 1. 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 2. Large central disc protrusion at L4-L5 results in moderate to severe central canal stenosis. 3. Mild central canal stenosis at L3-L4. 4. Mild neural foraminal narrowing at L4-L5 and L5-S1. Hospital Course (1) Acute low back pain: (2) Lumbar back pain with radiculopathy affecting lower extremity: Acute onset low back pain in a patient with known lumbar disc herniation with radiculopathy. MRI lumbar reveals large central disc protrusion at L4-5 with moderate to severe central canal stenosis Patient was evaluated by Orthopedic surgeon Dr Sutton who reviewed treatment options with patient Patient seen and examined today. Reports significant improvement in pain with current regimen (tylenol, NSAIDS, lidocaine patch and flexeril) She is able to ambulate today unlike yesterday when ambulation was limited due to pain. Patient to follow up with her home care specialist. If declines, can follow up with ortho for surgical options (3) Asthma: Stable Continue home inhalers (4) Depression: Reports depression is stable at this point Has not taken Prozac for some time now. Advised to resume (5) ADHD: Reports that she was only using Vyvanse during school and have not been using this for sometime since graduation Total Time Total Time Spent Total Time Spent (In Minutes): 45 Total Time Includes: Examination of the Patient, Discharge Planning and Medication Reconciliation Discharge Plan Discharge Items Patient Disposition: Home - Self-Care Reason For Visit: LOW BACK PAIN Discharge Diagnosis: Lumbar back pain with radiculopathy affecting lower extremity Activity: Resume your previous activity Non-emergency contact: Primary Care Provider and Pain Management Call non-emergency contact if: you have any medication questions and your symptoms worsen Follow-up/Referrals: Jose Lange, DO [Outside Practitioners] - 03/08/21 10:00 am (Date & Time 03/08/2021 10:00 AM Provider Jose Lange DO Department [facility] ) Shabnam Cox DO [Primary Care Provider] - (Date & Time 02/28/2021 10:00 AM Provider Shabnam Cox DO Department Family Practice [facility] ) Diet: Regular Addtl Attending Provider Instructions: Ms Camp. You came to the hospital with acute onset low back pain that limited your walking. You were evaluated and noted to have lumbar disc herniation and narrowing of the spinal canal. You were treated with medications and evaluated by Orthopedic surgeon. You are being discharged home to follow up with you home care specialist. Please follow up with Orthopedic surgeon in the clinic as well if need be. You are being discharged on some medications to help manage the pain. It was a pleasure taking care of you. Pending Studies at Discharge: No Stand-Alone Forms: My [employer], Smoking Cessation Medications and DC Order Prescriptions: New acetaminophen 325 mg Tablet 650 mg PO Q6H 4 Days Qty: 32 RF: 0 lidocaine 5 % Adhesive Patch,Medicated 1 patch transdermal QAM Qty: 7 RF: 0 ibuprofen 400 mg tablet 400 mg PO Q8H PRN (Reason: pain) Qty: 20 RF: 0 cyclobenzaprine 10 mg Tablet 10 mg PO BID PRN (Reason: muscle spasm) Qty: 14 RF: 0 Continued fluoxetine 40 mg capsule 40 mg PO DAILY RF: 0 budesonide-formoterol 2 puff inhalation BID RF: 0 Mirena 20 mcg/24 hours (5 yrs) 52 mg intrauterine device intrauterine RF: 0 cetirizine [Zyrtec] 10 mg Tablet 10 mg PO DAILY RF: 0 meclizine 25 mg tablet 25 mg PO TID PRN (Reason: Dizziness) RF: 0 albuterol sulfate [Proventil HFA] 90 mcg/actuation HFA aerosol inhaler 2 puff INHALATION Q4H PRN (Reason: Shortness Of Breath) RF: 0 Discontinued Vyvanse 20 mg capsule 20 mg PO DAILY RF: 0 Discharge Orders: Discharge Order (Routine); Ordered 02/21/21 Ordered By: Nena Birch/Other Patient Handouts: Relieving Back Pain Admission Data Admit Date/Time: 02/20/21 18:59 Attending Provider: Nena Mario I. Admit Provider: Nena Mario I. Primary Care Provider: Shabnam Cox Other Providers: Hernandez Sutton Valentine I. Other Interventions: Discharge Summary Assessment (RN) Last Done: 02/21/21 14:52
== END 2021-02-21 16:14 | disposition home or self-care (01) ==
LOC: ED 14:40 → 3N 14:40
DX: M51.16 Intervertebral disc disorders with radiculopathy, lumbar region; X58.XXXA Exposure to other specified factors, initial encounter; Z20.822 Contact with and (suspected) exposure to COVID-19; J45.909 Unspecified asthma, uncomplicated; Z79.899 Other long term (current) drug therapy; S39.012A Strain of muscle, fascia and tendon of lower back, initial encounter; M48.061 Spinal stenosis, lumbar region without neurogenic claudication; E66.9 Obesity, unspecified; Z68.33 Body mass index [BMI] 33.0-33.9, adult